=== PATIENT | female | born 1985 | race Two or more races ===

== ENCOUNTER 2024-04-26 20:41 | Emergency (ER) | payer OTHER ==
[~2024-04-26] VITALS: Ht 154.9 cm; Wt 68.0 kg
[2024-04-26] MEDS ORDERED: EPIDIOLEX100 MG/1 M PO (20:55)
[2024-04-26] MEDS ORDERED: TRAMADOL HCL 50 MG TABLET PO ONE (21:15)
[2024-04-26 21:27] LABS: HEMATOCRIT 34.1 % (36.0-45.00); HEMOGLOBIN 11.8 g/dL (12.0-15.00); MEAN CELL VOLUME 86.4 fL (80.00-100.00); MEAN CORPUSCULAR HEMOGLOBIN 29.9 pg (27.00-32.0); MEAN CORPUSCULAR HGB CONC 34.6 g/dl (32.0-36.0); PLATELET COUNT 252 K/uL (150-450); RED BLOOD COUNT 3.94 M/uL (4.00-6.00); RED CELL DISTRIBUTION WIDTH 13.7 % (11.5-14.5)
[2024-04-26 22:08] LABS: CREATININE SERUM 0.72 mg/dL (0.55-1.02); GFR 91.14; POTASSIUM 4.19 mEq/L (3.5-5.1)
[2024-04-26 22:27] LABS: URINE APPEARANCE Cloudy; URINE BILIRRUBIN Negative (NEGATIVE); URINE BLOOD Negative; URINE COLOR Yellow; URINE GLUCOSE Negative (NEGATIVE); URINE KETONE Negative (NEGATIVE); URINE LEUKOCYTE Negative; URINE NITRATE Negative; URINE PROTEIN Negative (NEGATIVE); URINE UROBILINOGEN 0.2 E.U./dl
[2024-04-26 22:30] LABS: URINE BACTERIA 3278.2 uL (0.0-1933); URINE EPITHELIAL CELLS 94.6 uL (0.0-38.8); URINE RBC 11.7 uL (0.0-20.8); URINE WBC 47.3 uL (0.0-23.2)
[2024-04-26 22:50] LABS: URINE CAST 0.45 uL (0.0-1.40)
[2024-04-26 22:52] LABS: URINE YEAST NEGATIVE /hpf
[2024-04-27] MEDS ORDERED: PROMETHAZINE HCL 25 MG/ML AMPUL IM STA (07:56)
[2024-04-27] MEDS ORDERED: MEPERIDINE HCL/PF 25 MG/ML VIAL IM STA (07:56)
[2024-04-27] MEDS ORDERED: PROMETHAZINE HCL 25 MG/ML AMPUL ONE (08:06)
[2024-04-27] MEDS ORDERED: MORPHINE SULFATE 4 MG/ML CARTRIDGE IV ONE (08:30)
== END 2024-04-27 10:00 | disposition home or self-care (01) ==
LOC: ER 20:42
PROVIDERS: General Practice
DX: N83.202 Unspecified ovarian cyst, left side (principal); N83.201 Unspecified ovarian cyst, right side

== ENCOUNTER 2024-05-22 19:03 | Emergency (ER) | payer OTHER ==
[~2024-05-22] VITALS: Ht 154.9 cm; Wt 68.0 kg
[~2024-05-22 19:03] MED LIST: EPIDIOLEX100 MG/1 M PO
[2024-05-22] MEDS ORDERED: MEPERIDINE HCL/PF 50 MG/ML VIAL IM ONE (20:00)
[2024-05-22] MEDS ORDERED: ONDANSETRON HCL 2 MG/ML VIAL IV ONE (20:00)
[2024-05-22] MEDS ORDERED: FAMOtidine 10 MG/ML (4ML VIAL) IV ONE (20:00)
[2024-05-22] MEDS ORDERED: 0.9 % SODIUM CHLORIDE 1,000 ML IV ONE (20:00)
[2024-05-22] MEDS ORDERED: ONDANSETRON HCL 2 MG/ML VIAL ONE (20:25)
[2024-05-22] MEDS ORDERED: FAMOTIDINE/PF 20 MG/2 ML VIAL ONE (20:26)
[2024-05-22 20:35] LABS: ERYTHROCYTE SEDIMENTATION RATE 4 mm/hr
[2024-05-22 20:37] LABS: HEMATOCRIT 38.7 % (36.0-45.00); HEMOGLOBIN 13.1 g/dL (12.0-15.00); MEAN CELL VOLUME 86.8 fL (80.00-100.00); MEAN CORPUSCULAR HEMOGLOBIN 29.4 pg (27.00-32.0); MEAN CORPUSCULAR HGB CONC 33.9 g/dl (32.0-36.0); PLATELET COUNT 273 K/uL (150-450); RED BLOOD COUNT 4.46 M/uL (4.00-6.00); RED CELL DISTRIBUTION WIDTH 13.7 % (11.5-14.5)
[2024-05-22 21:02] LABS: ALBUMIN 4.1 gm/dL (3.4-5.0); ALKALINE PHOSPHATASE 64 U/L (50-136); ALT/SGPT 33 U/L (12-78); ANION GAP 7 (10.0-20.0); AST/SGOT 17 U/L (15-37); BILIRUBIN TOTAL 0.41 mg/dL (0.3-1.2); BLOOD UREA NITROGEN 11 mg/dL (7-18); BUN CREA RATIO 15 (7.0-25.0); CALCIUM 9.9 mg/dL (8.5-10.1); CARBON DIOXIDE 30 mEq/L (21-32); CHLORIDE 108 mmol/L (98-107); CREATININE SERUM 0.72 mg/dL (0.55-1.02); GFR 91.14; GLOBULINA 3.8 G/DL (2.4-3.5); GLUCOSE FASTING 95 mg/dL (65-100); OSMOLALITY SERUM 279 MOSM/KG (275-295); POTASSIUM 4.54 mEq/L (3.5-5.1); SODIUM 140 mmol/L (136-145); TOTAL PROTEIN 7.9 gm/dL (6.4-8.2)
[2024-05-22 21:03] LABS: C-REACTIVE PROTEIN < 0.29 MG/DL (0.00-0.29)
[2024-05-22] MEDS ORDERED: KETO10TA2 PO (22:23)
== END 2024-05-22 22:32 | disposition home or self-care (01) ==
LOC: ER 19:04
PROVIDERS: General Practice
DX: N83.201 Unspecified ovarian cyst, right side (principal); N83.202 Unspecified ovarian cyst, left side; Z88.6 Allergy status to analgesic agent; Z88.0 Allergy status to penicillin; Z88.8 Allergy status to other drugs, medicaments and biological substances

== ENCOUNTER 2024-06-21 22:38 | Emergency (ER) | payer OTHER ==
[~2024-06-21] VITALS: Ht 154.9 cm; Wt 68.0 kg
[~2024-06-21 22:38] MED LIST changes: +KETO10TA2 PO
[2024-06-22] MEDS ORDERED: 0.9 % SODIUM CHLORIDE 1,000 ML IV SCH (01:00)
[2024-06-22 01:44] LABS: HEMATOCRIT 34.5 % (36.0-45.00); MEAN CELL VOLUME 84.9 fL (80.00-100.00); MEAN CORPUSCULAR HEMOGLOBIN 29.6 pg (27.00-32.0); MEAN CORPUSCULAR HGB CONC 34.9 g/dl (32.0-36.0); PLATELET COUNT 267 K/uL (150-450); RED BLOOD COUNT 4.06 M/uL (4.00-6.00); RED CELL DISTRIBUTION WIDTH 13.6 % (11.5-14.5)
[2024-06-22] MEDS ORDERED: ONDANSETRON HCL 2 MG/ML VIAL IV ONE (01:45)
[2024-06-22 02:01] LABS: PARTIAL THROMBOPLASTIN TIME 27.8 SECONDS (22.0-34.0); PROTHROMBIN TIME 10.9 SECONDS (9.0-11.5)
[2024-06-22 02:08] LABS: ALBUMIN 3.6 gm/dL (3.4-5.0); BILIRUBIN TOTAL 0.46 mg/dL (0.3-1.2); CALCIUM 9.6 mg/dL (8.5-10.1); CREATININE SERUM 0.82 mg/dL (0.55-1.02); GFR 78.44; GLOBULINA 3.3 G/DL (2.4-3.5); POTASSIUM 4.31 mEq/L (3.5-5.1); TOTAL PROTEIN 6.9 gm/dL (6.4-8.2)
[2024-06-22 02:19] LABS: PH,URINE 5.5 (5.0-8.0); URINE APPEARANCE Clear; URINE BILIRRUBIN Negative (NEGATIVE); URINE BLOOD Moderate; URINE COLOR Yellow; URINE GLUCOSE Negative (NEGATIVE); URINE KETONE Negative (NEGATIVE); URINE LEUKOCYTE Large; URINE NITRATE Negative; URINE PROTEIN Negative (NEGATIVE); URINE UROBILINOGEN 0.2 E.U./dl
[2024-06-22 02:26] LABS: URINE BACTERIA 491.2 uL (0.0-1933); URINE EPITHELIAL CELLS 24.5 uL (0.0-38.8); URINE RBC 26.8 uL (0.0-20.8); URINE WBC 300.7 uL (0.0-23.2)
== END 2024-06-22 05:47 | disposition home or self-care (01) ==
LOC: ER 22:39
PROVIDERS: General Practice
DX: N93.9 Abnormal uterine and vaginal bleeding, unspecified (principal); N83.209 Unspecified ovarian cyst, unspecified side; R10.2 Pelvic and perineal pain; Z88.0 Allergy status to penicillin; Z88.6 Allergy status to analgesic agent
CPT/HCPCS: 36415; 74177; 76830; Q9965

== ENCOUNTER → 2024-10-27 | Emergency (ER) | payer OTHER ==
[~2024-10-27] VITALS: Ht 154.9 cm; Wt 68.0 kg
== END | disposition left against medical advice (07) ==
LOC: ER 22:07
DX: Z53.21 Procedure and treatment not carried out due to patient leaving prior to being seen by health care provider (principal)

== ENCOUNTER → 2025-04-07 | Emergency (ER) | payer OTHER ==
[~2025-04-07] VITALS: Ht 154.9 cm; Wt 68.0 kg
[~2025-04-07] MED LIST changes: +CARAFATE1 GM; +CLEOCIN HCL300 MG PO; +NORFLEX100MG PO; +ORPHENADRINE CITRATE 30 MG/ML AMPUL IM ONE; +PEPCID AC20 MG PO; +PRILOSEC OTC20 MG
[2025-04-07 13:12] VITALS: BP 130/70; O2SAT 98
== END | disposition home or self-care (01) ==
LOC: ER 11:50
DX: N64.4 Mastodynia (principal); Z88.0 Allergy status to penicillin; Z88.6 Allergy status to analgesic agent; Z88.9 Allergy status to unspecified drugs, medicaments and biological substances; Z91.041 Radiographic dye allergy status